=== PATIENT | female | born 1990 | race Caucasian/White ===

== ENCOUNTER 2017-01-08 12:10 | Emergency (ER) | payer BC ==
[~2017-01-08] VITALS: Ht 157.5 cm; Wt 117.0 kg
[~2017-01-08 12:10] MED LIST: BROMFED DM COU118 ML PO
[2017-01-08] MEDS ORDERED: BACTROBAN 2% C1 INCH EX (12:43)
[2017-01-08] MEDS ORDERED: MEDROL 4MG. DOSE4 MG PO (12:43)
--- NOTE | 2017-01-08 12:48 | [facility]gent [facility] Report ---
History of Present Issue Date/Time Seen by Provider 01/08/17 1235 Visit Reason Pt arrived:Walked Presenting Problem:PT STATES HAVING HYSTERECTOMY ON TUESDAY AND IS HAVING ALLERGIC REACTION TO ABDOMEN Location if Accident: Onset of symptoms date/time:/ or onset unknown for:MEDICAL HX UNKNOWN Have you (or family members/close friends) recently traveled outside the [place]? N If Yes, where/when: Have you had exposure to infectious disease within the past month? TB? Other? Specify: Source patient, RN notes reviewed, family Exam Limitations no limitations Comment Patient had hysterectomy on 01.04.17. Is having allergic reaction to the adhesive used on her abdomen. ALLERGIES Coded Allergies: Sulfa (Sulfonamide Antibiotics) (08/10/16) Home Medications Active Scripts D-METHORPHAN HB/P-EPD HCL/BPM (Bromfed Dm Cough Syrup) 10 ML PO QIDP PRN cough #240 ML Prov: 08/10/16 History Medical History General CAD? No Angina: No AK: No Hypertension? No Hyperlipidemia? No CHF? No DVT? No PE? No COPD? No Asthma? No Anemia? No GERD? No Gastric ulcers? No GI Bleed? No Hernia? No Thyroid Problems? No Hypothyroidism? No CVA? No Seizures? No Diabetes? Yes Insulin Dependent: No Insulin Pump: No Home FSBS? No Renal Insuffiency? No UTI? No Stones? No GB Disease: No Nephritic Syndrome? No Asplenia? No Hepatitis? No Sickle Cell Disease? No Arthritis? No Migraines? No Cataracts? No Glaucoma? No MRSA? No HIV? No TB? No Anxiety? No Depression? Yes Cancer? No More? No Immunization HX DT/Tetanus 1-4 Years Ago Surgical Hx Previous Surgery?Y C SECTION X2 LEFT KNEE HYSTERECTOMY Social History Smoking Hx Smoker: Never Smoker Tobacco: No Alcohol Alcohol: No Review of Systems All Other Systems Reviewed and Negative Skin see HPI Physical Exam Vital Signs Vital Signs Date Time Temp Pulse Resp B/P Pulse O2 O2 Flow FiO2 Ox Delivery Rate 01/08 1222 97.9 102 20 162/101 99 General Appearance normal appearance Respiratory Status No: respiratory distress. Cardiovascular regular rate/rhythm Neurologic alert, oriented x 3 Skin wheals consistent with contact dermatitis from bandages; also honey crusted lesions consistent with impetigo Medical Decision Making LABS/Meds/Orders Pt receiving controlled substance in ED? No Results/Orders Current Medication Orders Sig/Michaelle Start time Last Medication Dose Route Stop Time Status Admin Dexamethasone Sodium 4 MG ONCE ONE 01/08 1245 DC Phosphate IJ 01/08 1246 Methylprednisolone 40 MG ONCE ONE 01/08 1245 DC Acetate IM 01/08 1246 Dexamethasone Sodium 0 .STK-MED ONE 01/08 1244 DC Phosphate .ROUTE Methylprednisolone 0 .STK-MED ONE 01/08 1244 DC Acetate IM Departure Departure Time of Disposition 1241 Disposition DC Home or Self Care(routine) Clinical Impression Primary Impression: ALLERGY, UNSPECIFIED, INITIAL ENCOUNTER Secondary Impressions: OTHER IMPETIGO Condition STABLE Referrals PATRICK BREWER (Family) Patient Instructions DI for General Allergic Reactions, DI for Impetigo Prescriptions Current Visit Scripts Methylprednisolone (Medrol Dose Eduard) 4 MG PO UD #1 EDUARD TAKE DIRECTED ON PACKAGING MUPIROCIN CALCIUM (Bactroban 2% Cream 15GM Tube) 15 GM EX TID #1 TUBE at 1241
[2017-01-08 13:03] VITALS: BP 162/101
== END 2017-01-08 13:04 | disposition home or self-care (01) ==
LOC: UTC 12:10
DX: L23.1 Allergic contact dermatitis due to adhesives (principal); E11.9 Type 2 diabetes mellitus without complications
CPT/HCPCS: J1040